=== PATIENT | male | born 1995 ===

== ENCOUNTER 2017-07-22 14:00 | Emergency (ER) | payer OTHER ==
[2017-07-22] MEDS ORDERED: GEODON IM ONE ×2 (14:37→14:40)
--- NOTE | 2017-07-22 14:41 | Emergency Department Report ---
ED Psych HPI - General Chief Complaint: Psych Stated Complaint: MH EVAL Time Seen by Provider: 07/22/17 14:36 Source: patient Mode of arrival: Ambulatory Limitations: Altered Mental Status - History of Present Illness Initial Comments: Patient is a 21-year-old male that presents to the emergency room with acute psychosis and aggression and agitation. Patient very aggressive towards staff. Patient refuses to answer questions. But family at bedside including giving HPI and histories. MD Complaint: other (acute agitation and psychosis) -: Sudden Associated Psychiatric Symptoms: homicidal ideation, racing thoughts, auditory hallucinations, visual hallucinations, delusions History of same: Yes Quality: constant Improves With: none Worsens With: none Context: significant life stressor Associated Symptoms: denies other symptoms Treatments Prior to Arrival: placed on mental he - Related Data Allergies Allergy/AdvReac Type Severity Reaction Status Date / Time No Known Allergies Allergy Unverified 07/22/17 14:18 ED Review of Systems ROS: Stated complaint: MH EVAL Other details as noted in HPI Comment: All other systems reviewed and negative Constitutional: denies: chills, fever Eyes: denies: eye pain, eye discharge, vision change ENT: denies: ear pain, throat pain Respiratory: denies: cough, shortness of breath, wheezing Cardiovascular: denies: chest pain, palpitations Endocrine: no symptoms reported Gastrointestinal: denies: abdominal pain, nausea, diarrhea Genitourinary: denies: urgency, dysuria Musculoskeletal: denies: back pain, joint swelling, arthralgia Skin: denies: rash, lesions Neurological: denies: headache, weakness, paresthesias Psychiatric: auditory hallucinations, visual hallucinations, homicidal thoughts. denies: anxiety, depression Hematological/Lymphatic: denies: easy bleeding, easy bruising ED Past Medical Hx - Past Medical History Previous Medical History?: Yes Hx Psychiatric Treatment: Yes (psychosis) Additional medical history: sickle cell- frequent blood exchange for sickle cell - Surgical History Past Surgical History?: No - Social History Smoking Status: Never Smoker Substance Use Type: None ED Physical Exam - General Limitations: No Limitations General appearance: alert, in no apparent distress - Head Head exam: Present: atraumatic, normocephalic - Eye Eye exam: Present: normal appearance - ENT ENT exam: Present: mucous membranes moist - Neck Neck exam: Present: normal inspection - Respiratory Respiratory exam: Present: normal lung sounds bilaterally. Absent: respiratory distress - Cardiovascular Cardiovascular Exam: Present: regular rate, normal rhythm. Absent: systolic murmur, diastolic murmur, rubs, gallop - GI/Abdominal GI/Abdominal exam: Present: soft, normal bowel sounds - Rectal Rectal exam: Present: deferred - Extremities Exam Extremities exam: Present: normal inspection - Back Exam Back exam: Present: normal inspection - Neurological Exam Neurological exam: Present: alert - Psychiatric Psychiatric exam: Present: agitated, anxious, homicidal ideation - Skin Skin exam: Present: warm, dry, intact, normal color. Absent: rash ED Course Vital Signs 07/22/17 07/22/17 14:11 16:31 Temperature 99.9 F H Pulse Rate 116 H Respiratory 20 20 Rate Blood Pressure 145/88 O2 Sat by Pulse 100 97 Oximetry - Reevaluation(s) Reevaluation #1: Patient doing better. The patient calm in isolation room after medications. 07/22/17 1600. ED Medical Decision Making - Lab Data Result diagrams: 07/22/17 15:34 07/22/17 15:34 - Medical Decision Making Patient is a 21-year-old male presents to emergency room with acute psychosis and inability to care for himself. Patient also had homicidal ideations and aggression towards others. 1013 signed. patient awaiting for mental health consult and transport to appropriate facility. All labs reviewed.. - Differential Diagnosis acute psychosis, HI. Critical care attestation.: If time is entered above; I have spent that time in minutes in the direct care of this critically ill patient, excluding procedure time. ED Disposition Clinical Impression: Acute psychosis, Hallucinations, visual, Homicidal ideations, Aggressive behavior, Agitation, Anemia Disposition: [id number]/[id number] PSY HOSP/PSY UNIT Is pt being admited?: No Does the pt Need Aspirin: No Condition: Stable Time of Disposition: 19:13
[2017-07-22 15:43] LABS: Basophils % (Auto) 0.2 % (0.0-1.8); Eosinophils % (Auto) 0.5 % (0.0-4.3); Hematocrit 34.4 % (35.5-45.6); Hemoglobin 11.3 gm/dl (11.8-15.2); Lymphocytes # (Auto) 1.6 K/mm3 (1.2-5.4); Lymphocytes % (Auto) 19.5 % (13.4-35.0); Mean Corpuscular HGB Conc 33 % (32-34); Mean Corpuscular Hemoglobin 33 pg (28-32); Mean Corpuscular Volume 101 fl (84-94); Monocytes # (Auto) 0.7 K/mm3 (0.0-0.8); Monocytes % (Auto) 8.5 % (0.0-7.3); Platelet Count 940 K/mm3 (140-440); Red Blood Count 3.42 M/mm3 (3.65-5.03)
[2017-07-22 15:47] LABS: Red Cell Distribution Width 24.1 % (13.2-15.2)
[2017-07-22 16:03] LABS: BUN/Creatinine Ratio 10; Blood Urea Nitrogen 10 mg/dL (9-20); Calcium 9.5 mg/dL (8.4-10.2); Hemolysis Index 10
[2017-07-22 18:36] LABS: Bilirubin,Urine NEG (Negative); Blood,Urine SM (Negative); Color,Urine Yellow (Yellow); Nitrite,Urine NEG (Negative); Urobilinogen,Urine < 2.0 mg/dL (<2.0)
[2017-07-22 18:59] LABS: Amphetamine Screen,Urine PRESUMPTIVE NEGATIVE; Benzodiazepines Screen,Urine PRESUMPTIVE NEGATIVE; Cannabinoid Screen,Urine PRESUMPTIVE NEGATIVE; Cocaine Screen,Urine PRESUMPTIVE NEGATIVE; Methadone Screen,Urine PRESUMPTIVE NEGATIVE; Opiate Screen,Urine PRESUMPTIVE NEGATIVE
[2017-07-23] MEDS: GEODON IM PRN (03:40)
--- NOTE | 2017-07-23 16:00 | Emergency Department Report ---
Blank Doc - Documentation Documentation: Patient is still currently in the emergency department awaiting psychiatric inpatient placement. He has been agitated today, wandering the hallways, cursing and starting to show some signs of aggression. He has been getting Geodon with some temporary improvement. However the patient required some isolation in bed 15. There are no new labs today. Vital signs stable including being afebrile. Patient was seen and examined and is currently much more calm in the isolation room. We will continue to monitor him and work on removing isolation indoor restraints.
[2017-07-24] MEDS: GEODON IM PRN (05:13)
--- NOTE | 2017-07-24 18:16 | Consultation ---
History of Present Illness - Reason for Consult Consult date: 07/24/17 Reason for consult: 1013, psychiatric consult - Chief Complaint Chief complaint: "Hi" - History of Present Psychiatric Illness 21 year old male brought in by parent complaining of bizarre behaviors. He has a history of Bipolar disorder with a least one prior hospitalization. He denies any home medications. He has been agitated and aggressive towards staff since admission, gesturing as if his hand were a gun, pacing, removing his clothing, attempting to elope, hitting windows with his fist. Per the mental health internet assessor, he is delusional, stating that "people don't understand", attributing his behavior to some "higher purpose" that other people cannot comprehend. He was attempting to leave the room on interview attempt and threw his sheet at the door. Per report the Pt endorsed some homicidal ideation upon initial evaluation. Medications and Allergies Allergies Allergy/AdvReac Type Severity Reaction Status Date / Time No Known Allergies Allergy Unverified 07/22/17 14:18 Home Medications Medication Instructions Recorded Confirmed Last Taken Type No Known Home Medications [No 07/22/17 07/22/17 Unknown History Reported Home Medications] Active Meds: Active Medications Ziprasidone (Geodon) 10 mg IM Q6H PRN PRN Reason: Agitation Last Admin: 07/24/17 05:13 Dose: 10 mg Ziprasidone (Geodon) 20 mg PO BID LOPEZ Past psychiatric history - Past Medical History Past Medical History: other (sickle cell anemia) Past Surgical History: Other (he denies splenectomy) - past Psychiatric treatment and history Psych: Psychosis - Social History Social history: other (parents brought him) Mental Status Exam - Vital signs Last Vital Signs Temp 98.2 F 07/23/17 21:40 Pulse 99 H 07/23/17 21:40 Resp 20 07/24/17 11:48 BP 131/95 07/23/17 21:40 Pulse Ox 100 07/24/17 11:48 - Exam Orientation: time, place, person Affect: agitated Thought content: delusions Thought Process: Disorganized Perceptions: other (responding to internal stimuli) Speech: minimal response Concentration: unable to pay attention Motor activity: agitated Level of consciousness: alert Interaction: uncooperative Results Result Diagrams: 07/22/17 15:34 07/22/17 15:34 All other labs normal. Assessment and Plan Assessment and plan: Impression: psychosis unspecified r/o schizophrenia platelets: 940 He has sickle cell anemia. He denies surgeries or spleen removal. Collateral from family is needed. Recommendation: The medical team will address non psychiatric health needs 1013 and transfer to inpatient psychiatric facility if medically cleared Start geodon 20mg bid for psychosis PRN geodon is available. Observe response to the scheduled dose before administering PRN dose.
[2017-07-24] MEDS: GEODON PO SCH (21:37)
[2017-07-25] MEDS: GEODON PO SCH ×2 (11:17→22:00)
--- NOTE | 2017-07-25 12:49 | Progress Note ---
Subjective - Reason for Consult Consult date: 07/25/17 Reason for consult: Psychiatry Follow-up - Chief Complaint Chief complaint: "Hi" 21 year old male brought in by parent complaining of bizarre behaviors. Today the patient is calm and cooperative during the assessment. His answers to questions are not logical. He is hyper verbal throughout the interview. The patient had to be redirected several times to keep him on topic. He did admit to finally getting sleep last night when asked. He denies SI/HI's and, but would not confirm AVH's. No indications of side effects of his medication. Mental Status Exam - Vital signs Last Vital Signs Temp 99.0 F 07/24/17 20:00 Pulse 105 H 07/24/17 20:00 Resp 20 07/24/17 20:24 BP 107/83 07/24/17 20:00 Pulse Ox 97 07/24/17 20:24 - Exam Narrative exam: MSE: Appearance: calm, cooperative Behavior: regular eye contact Speech: hyper verbal Mood: "okay" Affect: blunted Thought Process: tangential Thought Content: denies SI/HI's, delusional, would not confirm or deny AVH's Motor Activity: ambulatory Cognition: A/O x3 Insight: poor Judgment: poor Assessment and Plan Impression: Psychosis Unspecified. platelets: 940. He has sickle cell anemia. He denies surgeries or spleen removal. PLT 940. DDx: R/O Schizophrenia, Bipolar DO Recommendation/Plan: Continue 1013 with placement to inpatient psy services once medically clear. The patient's assigned RN was informed of his elevated plt 's. The medical team will address non psychiatric health needs. Modify Geodon to 40 mg PO BID for psychosis. Observe response to the scheduled dose before administering PRN dose. Discussed possible metabolic side effects of Geodon with patient.
[2017-07-25] MEDS ORDERED: GEODON PO SCH (22:00)
[2017-07-25] MEDS: GEODON IM PRN (22:05)
[2017-07-25 23:37] VITALS: BP 112/67
== END 2017-07-25 23:38 ==
LOC: EEVIPCON 14:00 → ED 14:00
DX: F29 Unspecified psychosis not due to a substance or known physiological condition (principal)
CPT/HCPCS: 36415; 80048; 80307; 81001; 85025; 85049; 96372; 99284; G0480; J3486; 80320